=== PATIENT | female | born 1975 | race Caucasian/White ===

== ENCOUNTER → 2016-10-10 | Outpatient (REF) | payer BC | LOC: M SFHCWAGY 11:09 | PROVIDERS: ATTEND Nurse Practitioner Women's Health | DX: Z12.4 Encounter for screening for malignant neoplasm of cervix (principal) ==

== ENCOUNTER → 2017-05-20 | Outpatient (REF) | payer BC ==
[2017-05-20 20:00] LABS: FOLLICLE STIMULATING HORMONE 3.7 mIU/mL; LUTEINIZING HORMONE 3.5 mIU/mL
[2017-05-20 20:01] LABS: FREE T4 0.87 NG/DL (0.76-1.46)
== END ==
LOC: M SFHCWAGY 15:36
PROVIDERS: ATTEND Nurse Practitioner Women's Health
DX: N92.6 Irregular menstruation, unspecified (principal); R63.5 Abnormal weight gain; R23.2 Flushing; G47.00 Insomnia, unspecified

== ENCOUNTER → 2017-12-08 | Outpatient (CLI) | payer BC | LOC: M WHC 13:36 | DX: Z12.31 Encounter for screening mammogram for malignant neoplasm of breast (principal); Z80.3 Family history of malignant neoplasm of breast | CPT/HCPCS: 77067 ==

== ENCOUNTER → 2017-12-08 | Outpatient (REF) | payer BC | LOC: M SFHCWAGY 14:22 | DX: Z12.4 Encounter for screening for malignant neoplasm of cervix (principal) | CPT/HCPCS: G0123 ==

== ENCOUNTER → 2019-03-10 | Outpatient (CLI) | payer BC ==
--- NOTE | 2019-03-10 14:28 | REPMRS ---
Patient History The patient states she had a clinical breast exam in 02/2019. Family history of breast cancer in maternal grandmother, breast cancer in paternal grandmother, prostate cancer in maternal grandfather, ovarian cancer at age 26 in mother. Digital Woman Screen Mammo: March 10, 2019 - Exam #: [id number] Bilateral CC and MLO view(s) were taken. Technologist: Aurora Valente, Technologist Prior study comparison: December 08, 2017, digital woman screen mammo performed at [facility]. September 01, 2016, bilateral digital woman screen mammo, performed at [facility]. May 02, 2015, bilateral digital woman screen mammo, performed at [facility]. FINDINGS: The breast tissue is heterogeneously dense. This may lower the sensitivity of mammography. There is a moderate amount of heterogeneously dense fibroglandular tissue which is fairly symmetric. There is no interval development of dominant mass, architectural distortion, or grouped microcalcification typical of malignancy. There has been no change in the appearance of the mammogram from the prior studies. 3-D tomosynthesis shows no additional findings. Assessment: BI-RADS/ACR category 1 mammogram. Negative Mammogram. Recommendation Breast MRI of both breasts in 6 months. Routine screening mammogram of both breasts in 1 year (for women over age 40). This patient's Lifetime Breast Cancer RIsk is estimated at 26.4 %. Annual screening Breast MRI scanniing is recommended for patient's whose lifetime risk assessment is over 20%. This mammogram was interpreted with the aid of an FDA-approved computer-aided dectection system. Electronically Signed By: Rick Root MD 03/10/19 [id number]
== END ==
LOC: M WHC 10:56
PROVIDERS: ATTEND Nurse Practitioner Women's Health
DX: Z12.31 Encounter for screening mammogram for malignant neoplasm of breast (principal); Z80.3 Family history of malignant neoplasm of breast; Z80.41 Family history of malignant neoplasm of ovary

== ENCOUNTER 2019-10-23 10:07 | Emergency (ER) | payer BC ==
[~2019-10-23] VITALS: Ht 162.6 cm; Wt 95.5 kg
[2019-10-23] MEDS ORDERED: NORCO, ANEXSIA 5/325MG TABLET (HYDROcodone/ACETAMINOPHEN) PO ONE (11:30)
[2019-10-23 12:16] VITALS: BP 123/66
--- NOTE | 2019-10-23 12:19 | REP ---
ULTRASOUND NECK SOFT TISSUES: Real-time sonographic evaluation of neck soft tissues performed bilaterally. Multiple lymph nodes are identified, all demonstrating a fatty hilum with normal short-axis dimension. Approximately four lymph nodes are seen in the left neck soft tissues, the largest measures 2.1 x 0.4 x 1.1 cm. Approximately three lymph nodes are seen in the right neck soft tissues, largest measures 1.3 x 0.7 x 0.9 cm. No fluid collection is seen bilaterally. IMPRESSION: Multiple lymph nodes seen bilaterally with normal short-axis dimension. No fluid collection bilaterally. Electronically Signed by Bhargav Rios MD 10/23/2019 06:38 P
== END 2019-10-23 12:55 | disposition home or self-care (01) ==
LOC: M ED 10:07
DX: R59.0 Localized enlarged lymph nodes (principal); M54.2 Cervicalgia; Z88.0 Allergy status to penicillin; Z91.09 Other allergy status, other than to drugs and biological substances

== ENCOUNTER → 2020-03-12 | Outpatient (CLI) | payer BC ==
[2020-03-12 13:50] LABS: ALBUMIN 3.8 GM/DL (3.2-5.2); ALT/SGPT 44 U/L (12-78); BILIRUBIN,TOTAL 0.5 MG/DL (0.2-1.0); BLOOD UREA NITROGEN 11 MG/DL (7-18); CALCIUM LEVEL 9.4 MG/DL (8.5-10.1); CARBON DIOXIDE LEVEL 29 MEQ/L (21-32); CHLORIDE LEVEL 105 MEQ/L (98-107); CHOLESTEROL LEVEL 229 MG/DL (<200); CHOLESTEROL RISK RATIO 5.204 (<5); GLOMERULAR FILTRATION RATE > 60.0 (>58); GLUCOSE, FASTING 89 MG/DL (70-100); HDL CHOLESTEROL 44 MG/DL (>40); LDL CHOLESTEROL 157 MG/DL (<100); NON-HDL-C 185 MG/DL; POTASSIUM SERUM 4.6 MEQ/L (3.5-5.1); SODIUM LEVEL 139 MEQ/L (136-145); TOTAL PROTEIN 7.7 GM/DL (6.4-8.2); TRIGLYCERIDES LEVEL 138 MG/DL (<150)
== END ==
LOC: M PLALAB 10:26
PROVIDERS: ATTEND Family Medicine
DX: Z00.00 Encounter for general adult medical examination without abnormal findings (principal)

== ENCOUNTER → 2020-04-06 | Outpatient (REF) | payer BC | LOC: M SFHCWAGY 12:45 | PROVIDERS: ATTEND Nurse Practitioner Women's Health | DX: Z12.4 Encounter for screening for malignant neoplasm of cervix (principal) ==

== ENCOUNTER → 2020-06-25 | Outpatient (CLI) | payer BC | LOC: M LABSMTC 11:12 | PROVIDERS: ATTEND Family Medicine | DX: Z20.828 Contact with and (suspected) exposure to other viral communicable diseases (principal) ==

== ENCOUNTER → 2020-09-02 | Outpatient (CLI) | payer SELFPAY | LOC: M LABSMTC 08:23 | PROVIDERS: ATTEND Pediatrics | DX: Z20.822 Contact with and (suspected) exposure to COVID-19 (principal) ==

== ENCOUNTER → 2021-01-24 | Outpatient (REF) | payer BC | LOC: M LAB REF 12:20 | PROVIDERS: ATTEND Physician Assistant Medical | DX: R53.83 Other fatigue (principal) ==

== ENCOUNTER 2021-03-12 12:30 | Emergency (ER) | payer BC ==
[~2021-03-12] VITALS: Ht 162.6 cm; Wt 90.9 kg
--- NOTE | 2021-03-12 13:28 | REP ---
INDICATION: TRAUMA. COMPARISON: None. TECHNIQUE: Four views of the right hand are provided. FINDINGS: Four views of the right hand demonstrate overall normal mineralization.. No fracture or subluxation is seen. No opaque foreign body noted. IMPRESSION: Negative right hand series. <Electronically signed by Rick Root > 03/12/21 [id number]
[2021-03-12] MEDS ORDERED: LIDOCAINE 2% MDV 20ML VIAL SC ONE (16:35)
[2021-03-12] MEDS ORDERED: DERMABOND TOPICAL SKIN ADHESIVE TOP ONE (16:35)
[2021-03-12 17:45] VITALS: BP 143/74
== END 2021-03-12 17:50 | disposition home or self-care (01) ==
LOC: M ED 12:30
DX: S61.011A Laceration without foreign body of right thumb without damage to nail, initial encounter (principal); S67.01XA Crushing injury of right thumb, initial encounter; W23.0XXA Caught, crushed, jammed, or pinched between moving objects, initial encounter; Y92.481 Parking lot as the place of occurrence of the external cause; Y93.9 Activity, unspecified; Y99.8 Other external cause status; Z88.0 Allergy status to penicillin; Z91.040 Latex allergy status

== ENCOUNTER → 2021-06-14 | Outpatient (REF) | payer BC | LOC: M LAB REF 16:34 | PROVIDERS: ATTEND Internal Medicine | DX: R50.9 Fever, unspecified (principal) ==

== ENCOUNTER → 2021-06-18 | Outpatient (REF) | payer BC | LOC: M LAB REF 14:33 | PROVIDERS: ATTEND Internal Medicine | DX: R50.9 Fever, unspecified (principal); R53.83 Other fatigue ==

== ENCOUNTER → 2021-06-20 | Outpatient (CLI) | payer BC ==
--- NOTE | 2021-06-20 10:30 | REP ---
INDICATION: COUGH AND FEVER. COMPARISON: 06/20/2020 the latest prior TECHNIQUE: PA and lateral FINDINGS: The superior mediastinal structures are midline. The cardiac silhouette is unremarkable in size, shape, and position. The diaphragmatic surfaces of the lungs are regular, and the costophrenic angles are clear. The pulmonary reddy are clear. The imaged osseous structures are intact. IMPRESSION: There is no acute cardiopulmonary disease. No significant change compared to the prior exam <Electronically signed by Minh Moncada > 06/20/21 1020
== END ==
LOC: M WUC 08:55
PROVIDERS: ATTEND Internal Medicine
DX: R05.9 Cough, unspecified (principal); R50.9 Fever, unspecified

== ENCOUNTER → 2021-06-24 | Outpatient (CLI) | payer BC ==
--- NOTE | 2021-06-24 16:23 | REP ---
INDICATION: AUB. COMPARISON: 09/14/2015. TECHNIQUE: Transvaginal scanning performed. FINDINGS: Uterine dimensions are 10.8 x 5.9 x 6.7 cm. Endometrial echo is 18 mm in AP dimension and centrally placed. The endometrium is heterogeneous in echotexture. The junctional zone is not well-defined. Adenomyosis is not excluded. Focal heterogeneous structure in the right lateral myometrium measures 2.6 x 2.4 x 2.1 cm. This may represent a fibroid or adenomyoma. There are nabothian cysts in the region of the cervix measuring up to 1 cm. The ovaries could not be visualized. There is no adnexal mass identified. No free fluid is seen in the cul-de-sac. IMPRESSION: Thickened heterogeneous endometrium measuring up to 18 mm in thickness with tiny internal cystic areas. The junctional zone is not well-defined. This may indicate adenomyosis. Focal heterogeneous structure in the right lateral myometrium 2.6 cm in maximum diameter may represent a fibroid or adenomyoma. The ovaries could not be visualized. No evidence of adnexal mass or free fluid. <Electronically signed by Bhargav Rios > 06/24/21 [id number]
== END ==
LOC: M RAD 14:06
PROVIDERS: ATTEND Internal Medicine
DX: N93.9 Abnormal uterine and vaginal bleeding, unspecified (principal)

== ENCOUNTER → 2021-06-27 | Outpatient (CLI) | payer BC ==
--- NOTE | 2021-06-30 10:23 | ECHO ---
ECHOCARDIOGRAM DATE OF PROCEDURE: 06/27/2021 Age: 46 Gender: Female Height: 160 cm Weight: 97 kg REFERRING PHYSICIAN: MP CROWELL MD PATIENT LOCATION: Outpatient. REASON FOR STUDY: Heart murmur. 2D MEASUREMENTS: IVS 0.7 cm LV 4.8 cm LVPW 0.8 cm LA 3.4 cm Aorta 3.0 cm DOPPLER MEASUREMENT Peak velocity across the aortic valve 1.3 m/s Peak velocity across the LVOT 0.9 m/s Mitral E 0.7 Mitral A 0.6 with a ratio of 1.2 Maximum tricuspid valve velocity 2.3 m/s 2D COMMENTS: 1. Normal left ventricular size, wall thickness, and normal global left ventricular systolic function. The estimated left ventricular systolic ejection fraction is 60% to 65%. 2. Normal left atrium. Normal right atrium and right ventricle. 3. The atrial septum appeared to be normal without evidence of defect or shunt. 4. Normal aortic root. 5. No pericardial effusion seen. 6. Minimally calcified aortic valve with normal leaflet excursion. Normal mitral valve, tricuspid valve, and pulmonic valve. 7. The inferior vena cava was not well visualized. DOPPLER: Detects trace aortic regurgitation, trace mitral regurgitation, trace to mild tricuspid regurgitation, and trace pulmonic regurgitation. The calculated pulmonary artery systolic pressure is about 30 mmHg. Assessment of the left ventricular diastolic function appeared to be normal. IMPRESSION: 1. Normal global left ventricular systolic and diastolic function. 2. Aortic valve sclerosis with trace aortic regurgitation, but no aortic stenosis. 3. Trace mitral regurgitation. 4. Trace to mild tricuspid regurgitation with probably mild pulmonary hypertension.
== END ==
LOC: M CARPUL 10:51
PROVIDERS: ATTEND Internal Medicine
DX: R01.1 Cardiac murmur, unspecified (principal)

== ENCOUNTER → 2021-07-31 | Outpatient (REF) | payer BC | LOC: M LAB REF 12:39 | PROVIDERS: ATTEND Internal Medicine | DX: R50.9 Fever, unspecified (principal); R53.83 Other fatigue ==

== ENCOUNTER → 2021-08-01 | Outpatient (REF) | payer BC | LOC: M SFHCWAGY 17:49 | PROVIDERS: ATTEND Nurse Practitioner Women's Health | DX: Z12.4 Encounter for screening for malignant neoplasm of cervix (principal); R87.610 Atypical squamous cells of undetermined significance on cytologic smear of cervix (ASC-US) | CPT/HCPCS: 87624; G0123 ==

== ENCOUNTER → 2021-08-05 | Outpatient (REF) | payer BC | LOC: M SFHCWAGY 13:13 | PROVIDERS: ATTEND Nurse Practitioner Women's Health | DX: N93.9 Abnormal uterine and vaginal bleeding, unspecified (principal) ==

== ENCOUNTER → 2021-09-20 | Outpatient (REF) | payer BC | LOC: M LAB REF 16:46 | PROVIDERS: ATTEND Physician Assistant Medical | DX: N39.0 Urinary tract infection, site not specified (principal) ==

== ENCOUNTER → 2021-10-08 | Outpatient (CLI) | payer BC | LOC: M RAD 08:30 | PROVIDERS: ATTEND Internal Medicine | DX: R74.01 Elevation of levels of liver transaminase levels (principal) ==

== ENCOUNTER → 2022-01-30 | Outpatient (REF) | payer BC ==
[2022-01-30 13:36] LABS: C REACTIVE PROTEIN QUANTITATIV 0.92 MG/DL (0.00-0.30); RHEUMATOID FACTOR QUANT < 10.0 IU/ML (<15.0)
[2022-02-01 00:08] LABS: ANA (HEP2) Negative (.); CYCLIC CITRULLINATED PEPTIDE 5 units (0-19)
== END ==
LOC: M LAB REF 12:58
PROVIDERS: ATTEND Internal Medicine
DX: R79.82 Elevated C-reactive protein (CRP) (principal); M06.4 Inflammatory polyarthropathy

== ENCOUNTER → 2022-02-03 | Outpatient (CLI) | payer BC | LOC: M PLAIMG 08:47 | PROVIDERS: ATTEND Internal Medicine | DX: M54.2 Cervicalgia (principal) ==

== ENCOUNTER → 2022-08-04 | Outpatient (REF) | payer BC ==
[2022-08-04 12:55] LABS: C REACTIVE PROTEIN QUANTITATIV 0.7 MG/DL (<1.0)
[2022-08-04 12:56] LABS: PHOSPHORUS LEVEL 4.3 MG/DL (2.5-4.9)
[2022-08-04 12:58] LABS: THYROID STIMULATING HORMONE 5.719 uIU/ML (0.55-4.78); TOTAL 25(OH) VITAMIN D 20.9 NG/ML (20.0-100.0)
== END ==
LOC: M SFHCRHEU 10:39
PROVIDERS: ATTEND Internal Medicine
DX: R79.82 Elevated C-reactive protein (CRP) (principal); R70.0 Elevated erythrocyte sedimentation rate; M79.10 Myalgia, unspecified site

== ENCOUNTER → 2022-08-27 | Outpatient (CLI) | payer BC | LOC: M PLAIMG 10:14 | PROVIDERS: ATTEND Internal Medicine | DX: M25.50 Pain in unspecified joint (principal) ==

== ENCOUNTER 2022-09-19 11:31 | Emergency (ER) | payer BC ==
[~2022-09-19] VITALS: Ht 162.6 cm; Wt 101.0 kg
[2022-09-19 11:32] VITALS: BP 122/63
[2022-09-19] MEDS ORDERED: IBUP200C33 PO (11:53)
[2022-09-19 12:54] LABS: BASO % 0.4 % (0.0-1.0); EOS # 0.2 10^3/uL (0.0-0.5); HEMATOCRIT 38.5 % (36.0-47.0); HEMOGLOBIN 12.3 g/dl (12.0-15.5); LYMPH # 2.7 10^3/uL (1.5-5.0); LYMPH % 29.8 % (24.0-44.0); MEAN CORPUSCULAR HEMOGLOBIN 28.1 pg (27.0-33.0); MEAN CORPUSCULAR HGB CONC 31.9 g/dl (32.0-36.5); MEAN CORPUSCULAR VOLUME 87.9 fl (80.0-96.0); MONO # 0.4 10^3/uL (0.0-0.8); MONO % 4.8 % (2.0-8.0); NEUTROPHILS # 5.8 10^3/uL (1.5-8.5); NEUTROPHILS % 62.7 % (36.0-66.0); PLATELET COUNT, AUTOMATED 346 10^3/uL (150-450); RED BLOOD COUNT 4.38 10^6/uL (4.00-5.40); WHITE BLOOD COUNT 9.2 10^3/uL (4.0-10.0)
[2022-09-19 13:16] LABS: ALBUMIN 3.9 G/DL (3.2-5.2); ALKALINE PHOSPHATASE 87 U/L (46-116); ALT/SGPT 37 U/L (7.0-40); AST/SGOT 23 U/L (<34); BILIRUBIN,DIRECT 0.1 MG/DL (<0.4); BILIRUBIN,TOTAL 0.5 MG/DL (0.3-1.2); BLOOD UREA NITROGEN 13 MG/DL (9-23); CALCIUM LEVEL 9.5 MG/DL (8.5-10.1); CARBON DIOXIDE LEVEL 29 MMOL/L (20-31); CHLORIDE LEVEL 103 MMOL/L (98-107); CREATININE FOR GFR 0.54 MG/DL (0.55-1.30); GLOMERULAR FILTRATION RATE > 60.0 (>58); GLUCOSE, FASTING 88 MG/DL (60-100); POTASSIUM SERUM 3.8 MMOL/L (3.5-5.1); SODIUM LEVEL 140 MMOL/L (136-145); TOTAL PROTEIN 7.5 G/DL (5.7-8.2)
[2022-09-19 13:21] LABS: HCG, SERUM QUALITATIVE NEGATIVE (NEGATIVE)
[2022-09-19] MEDS ORDERED: HYDR-3713 PO (13:45)
== END 2022-09-19 13:55 | disposition home or self-care (01) ==
LOC: M ED 11:31
DX: D25.9 Leiomyoma of uterus, unspecified (principal); Z91.040 Latex allergy status; Z88.0 Allergy status to penicillin; Z79.1 Long term (current) use of non-steroidal anti-inflammatories (NSAID)

== ENCOUNTER → 2022-12-17 | Outpatient (REF) | payer BC ==
[~2022-12-17] MED LIST: HYDR-3713 PO; IBUP200C33 PO
== END ==
LOC: M PLALAB 16:47
PROVIDERS: ATTEND Nurse Practitioner Family
DX: Z12.4 Encounter for screening for malignant neoplasm of cervix (principal); R87.618 Other abnormal cytological findings on specimens from cervix uteri
CPT/HCPCS: 87624; G0123

== ENCOUNTER → 2022-12-17 | Outpatient (CLI) | payer BC | LOC: M WHC 15:12 | PROVIDERS: ATTEND Nurse Practitioner Family | DX: Z12.31 Encounter for screening mammogram for malignant neoplasm of breast (principal); Z80.3 Family history of malignant neoplasm of breast; Z80.42 Family history of malignant neoplasm of prostate; Z80.41 Family history of malignant neoplasm of ovary ==

== ENCOUNTER → 2023-02-12 | Outpatient (CLI) | payer BC ==
[2023-02-12 15:47] LABS: FOLLICLE STIMULATING HORMONE 10.4 mIU/ML; LUTEINIZING HORMONE 5.4 mIU/ML
[2023-02-12 15:49] LABS: ESTRADIOL 143.7 PG/ML
[2023-02-12 15:50] LABS: PROGESTERONE < 0.21 NG/ML
== END ==
LOC: M PLALAB 12:33
PROVIDERS: ATTEND Specialist
DX: N92.6 Irregular menstruation, unspecified (principal)

== ENCOUNTER → 2023-02-19 | Outpatient (CLI) | payer BC ==
[2023-02-19 11:21] LABS: FREE T4 0.8 NG/DL (0.89-1.76); THYROID STIMULATING HORMONE 4.755 uIU/ML (0.55-4.78)
== END ==
LOC: M LAB 09:35
PROVIDERS: ATTEND Internal Medicine Endocrinology, Diabetes & Metabolism
DX: R94.6 Abnormal results of thyroid function studies (principal)

== ENCOUNTER → 2023-02-19 | Outpatient (CLI) | payer BC | LOC: M RAD 09:33 | PROVIDERS: ATTEND Specialist | DX: D21.9 Benign neoplasm of connective and other soft tissue, unspecified (principal) ==

== ENCOUNTER → 2023-09-17 | Outpatient (CLI) | payer BC | LOC: M WHC 10:13 | PROVIDERS: ATTEND Specialist | DX: N92.6 Irregular menstruation, unspecified (principal) ==

== ENCOUNTER → 2023-12-10 | Outpatient (CLI) | payer BC | LOC: M RAD 15:33 | PROVIDERS: ATTEND Internal Medicine | DX: R22.1 Localized swelling, mass and lump, neck (principal) ==

== ENCOUNTER → 2024-01-01 | Outpatient (CLI) | payer BC | LOC: M WHC 09:30 | PROVIDERS: ATTEND Nurse Practitioner Family | DX: Z12.31 Encounter for screening mammogram for malignant neoplasm of breast (principal) ==

== ENCOUNTER → 2024-01-01 | Outpatient (REF) | payer BC | LOC: M SFHCWAGY 12:54 | PROVIDERS: ATTEND Nurse Practitioner Family | DX: Z12.4 Encounter for screening for malignant neoplasm of cervix (principal) | CPT/HCPCS: 87624; G0123 ==

== ENCOUNTER → 2024-03-24 | Outpatient (REF) | payer BC ==
[2024-03-24 13:34] LABS: PERCENT SATURATION 12.2 % (13.2-45.0)
[2024-03-24 13:36] LABS: FERRITIN 20.9 NG/ML (7.3-270.7)
== END ==
LOC: M LAB REF 13:07
PROVIDERS: ATTEND Internal Medicine
DX: K76.0 Fatty (change of) liver, not elsewhere classified (principal)

== ENCOUNTER → 2024-07-04 | Outpatient (CLI) | payer BC | LOC: M RAD 12:20 | PROVIDERS: ATTEND Otolaryngology | DX: R59.9 Enlarged lymph nodes, unspecified (principal) ==

== ENCOUNTER → 2024-10-06 | Outpatient (CLI) | payer BC | LOC: M WHC 07:52 | PROVIDERS: ATTEND Specialist | DX: N92.6 Irregular menstruation, unspecified (principal); N88.8 Other specified noninflammatory disorders of cervix uteri; R93.89 Abnormal findings on diagnostic imaging of other specified body structures ==

== ENCOUNTER → 2024-11-10 | Outpatient (CLI) | payer BC ==
[2024-11-10 15:15] LABS: ESTRADIOL 30.6 PG/ML; THYROID STIMULATING HORMONE 4.745 uIU/ML (0.55-4.78)
[2024-11-10 15:16] LABS: FREE T4 0.93 NG/DL (0.89-1.76); LUTEINIZING HORMONE 6.2 mIU/ML
== END ==
LOC: M PLALAB 09:22
PROVIDERS: ATTEND Specialist
DX: N92.6 Irregular menstruation, unspecified (principal)

== ENCOUNTER → 2024-12-19 | Outpatient (REF) | payer BC ==
[2024-12-19 13:53] LABS: FERRITIN 16.5 NG/ML (7.3-270.7)
[2024-12-19 13:56] LABS: PERCENT SATURATION 19.7 % (13.2-45.0)
== END ==
LOC: M LAB REF 12:45
PROVIDERS: ATTEND Internal Medicine
DX: D50.9 Iron deficiency anemia, unspecified (principal)

== ENCOUNTER → 2025-01-02 | Outpatient (CLI) | payer BC ==
[~2025-01-02] MED LIST changes: +ASPI81TA26 PO; +ROSU5TAB49 PO
== END ==
LOC: M RAD 11:08
PROVIDERS: ATTEND Otolaryngology
DX: R59.9 Enlarged lymph nodes, unspecified (principal); R93.7 Abnormal findings on diagnostic imaging of other parts of musculoskeletal system

== ENCOUNTER 2025-01-03 13:00 | Outpatient (CLI) | payer BC ==
[~2025-01-03] VITALS: Ht 162.6 cm; Wt 104.5 kg
[2025-01-03 13:00] VITALS: BP 139/69; O2SAT 96
[~2025-01-03 13:00] MED LIST changes: +ALBUTEROL SULFATE 2.5MG/0.5ML INH CONCENTRATE NEB SOLN INH PRN; -ASPI81TA26 PO; +EPINEPHrine INJ 1 MG/ML 1ML AMP IM PRN; +NS (Normal Saline) 0.9% 1,000 ML IV SCH; -ROSU5TAB49 PO; +diphenhydrAMINE 50MG/ML VIAL IV PRN; +methylPREDNISolone 125MG 2ML VIAL IV PRN
[2025-01-03] MEDS: FERRIC CARBOXYMALTOSE 750 MG (VIAL MATE) IN 100ML NS IV ONE (13:25)
[2025-01-03 14:08] VITALS: BP 138/74; O2SAT 99
[2025-01-09] MEDS ORDERED: ROSU5TAB49 PO (08:44)
[2025-01-09] MEDS ORDERED: ASPI81TA26 PO (08:44)
== END 2025-01-03 14:10 ==
LOC: M INFU 13:00
PROVIDERS: ATTEND Internal Medicine
DX: D50.9 Iron deficiency anemia, unspecified (principal); Z88.0 Allergy status to penicillin; Z91.040 Latex allergy status; Z91.048 Other nonmedicinal substance allergy status
CPT/HCPCS: 96365; J1439

== ENCOUNTER → 2025-03-27 | Outpatient (REF) | payer BC ==
[~2025-03-27] MED LIST changes: -ALBUTEROL SULFATE 2.5MG/0.5ML INH CONCENTRATE NEB SOLN INH PRN; +ASPI81TA26 PO; +DOCU100C16 PO; -EPINEPHrine INJ 1 MG/ML 1ML AMP IM PRN; +IBUP-1022 PO; -NS (Normal Saline) 0.9% 1,000 ML IV SCH; +OXYC1TAB23 PO; +ROSU5TAB49 PO; -diphenhydrAMINE 50MG/ML VIAL IV PRN; -methylPREDNISolone 125MG 2ML VIAL IV PRN
[2025-03-27 12:30] LABS: IRON (FE) 119.0 UG/DL (50-170)
[2025-03-27 12:31] LABS: PERCENT SATURATION 40.9 % (13.2-45.0)
== END ==
LOC: M LAB REF 11:56
PROVIDERS: ATTEND Internal Medicine
DX: D50.9 Iron deficiency anemia, unspecified (principal)

== ENCOUNTER → 2025-06-11 | Outpatient (REF) | payer BC ==
[~2025-06-11] MED LIST changes: -IBUP-1022 PO; +IBUP600T42 PO
== END ==
LOC: M LAB REF 17:52
PROVIDERS: ATTEND Physician Assistant Medical
DX: R30.0 Dysuria (principal); N39.0 Urinary tract infection, site not specified

== ENCOUNTER → 2025-06-21 | Outpatient (CLI) | payer BC | LOC: M WHC 12:48 | PROVIDERS: ATTEND Obstetrics & Gynecology | DX: Z12.31 Encounter for screening mammogram for malignant neoplasm of breast (principal); R92.323 Mammographic fibroglandular density, bilateral breasts ==